=== PATIENT | male | born 1950 | race Caucasian/White ===

== ENCOUNTER → 2017-09-27 | Emergency (ER) | payer MEDICARE, MEDICAID ==
[~2017-09-27] VITALS: Ht 165.1 cm; Wt 59.9 kg
[~2017-09-27] MED LIST: CENTRUM SILVER1 EACH PO; Carafate1 GM PO; DIOVAN40 MG PO; LANSOPRAZOLE30 MG PO; NORCO 5-325 TA1 EACH PO; PERCOCET 325 MG1 TA7 PO; ST. JOHN'S WOR300 MG PO; VENTOLIN 02.5 MG/3 M INH
[2017-09-27 13:23] LABS: HEMATOCRIT 37.2 % (42.0-52.0); HEMOGLOBIN 12.9 g/dl (14.0-18.0); MEAN CELL VOLUME 90.7 fl (80.0-94.0); MEAN CORPUSCULAR HGB 31.5 pg (27.0-31.0); MEAN CORPUSCULAR HGB CONC 34.7 g/dl (33.0-37.0); MEAN PLATELET VOLUME 9.2 fl (9.6-12.3); PLATELET COUNT AUTOMATED 335 10*3/uL (130-400); RED CELL DISTRI WIDTH 13.2 % (0-14.5); WHITE BLOOD COUNT 27.8 10*3/uL (4.8-10.8)
[2017-09-27 13:37] LABS: ALKALINE PHOSPHATASE 78 U/L (45-117); BUN 20 mg/dl (7-24); CHLORIDE 101 mmol/L (98-107); CREATININE 0.78 mg/dL (0.70-1.30); POTASSIUM 3.8 mmol/L (3.5-5.1); SGOT/AST 10 IU/L (3-35); SGPT/ALT 14 U/L (12-78); SODIUM 135 mmol/L (136-145); TOTAL PROTEIN 7.3 gm/dL (6.4-8.2)
[2017-09-27 13:40] LABS: PLATELET SUFFICIENCY NORMAL (NORMAL); TOTAL CELLS COUNTED 100 #CELLS
[2017-09-27 15:57] LABS: BILIRUBIN 1+ (NEGATIVE); BLOOD 3+ (NEGATIVE); CLARITY CLOUDY (CLEAR); COLOR YELLOW (YELLOW); GLUCOSE NEGATIVE (NEGATIVE); KETONE 2+ (NEGATIVE); LEUKO ESTERASE 2+ (NEGATIVE); NITRITE POSITIVE (NEGATIVE); SPECIFIC GRAVITY 1.025 (1.005-1.030)
[2017-09-27 16:24] LABS: BACTERIA 4+; EPITHELIAL CELLS 0-2; MUCOUS 1+; WBC TNTC wbc/hpf (0-5)
== END ==
LOC: ED 12:40
PROVIDERS: Nurse Practitioner Family
DX: N45.1 Epididymitis (principal); R03.0 Elevated blood-pressure reading, without diagnosis of hypertension; E87.1 Hypo-osmolality and hyponatremia; E46 Unspecified protein-calorie malnutrition; F17.200 Nicotine dependence, unspecified, uncomplicated; Z79.899 Other long term (current) drug therapy

== ENCOUNTER → 2017-10-19 | Outpatient (CLI) | payer MEDICARE ==
[2017-10-19 11:13] LABS: BASO # 0.1 10*3/uL (0.0-0.1); BASO % 0.7 % (0.0-1.0); EOS # 0.1 10*3/uL (0.0-0.4); EOS % 1.1 % (1.0-4.0); HEMATOCRIT 37.9 % (42.0-52.0); HEMOGLOBIN 13.1 g/dl (14.0-18.0); LYMPH # 2.5 10*3/uL (1.3-4.4); MEAN CELL VOLUME 90.9 fl (80.0-94.0); MEAN CORPUSCULAR HGB 31.4 pg (27.0-31.0); MEAN CORPUSCULAR HGB CONC 34.6 g/dl (33.0-37.0); MEAN PLATELET VOLUME 9.7 fl (9.6-12.3); MONO # 0.4 10*3/uL (0.1-1.0); MONO % 5.4 % (3.0-9.0); NEUT # 5.1 10*3/uL (2.3-7.9); NEUT % 62.7 % (47.0-73.0); PLATELET COUNT AUTOMATED 253 10*3/uL (130-400); RED BLOOD COUNT 4.17 10*6/uL (4.50-5.90); RED CELL DISTRI WIDTH 13.8 % (0-14.5); WHITE BLOOD COUNT 8.2 10*3/uL (4.8-10.8)
[2017-10-19 11:39] LABS: ALBUMIN 3.8 gm/dl (3.1-4.5); BUN 15 mg/dl (7-24); CHLORIDE 102 mmol/L (98-107); CREATININE 0.91 mg/dL (0.70-1.30); SGOT/AST 17 IU/L (3-35); SGPT/ALT 27 U/L (12-78); SODIUM 135 mmol/L (136-145); TOTAL PROTEIN 7.1 gm/dL (6.4-8.2)
[2017-10-19 11:42] LABS: ALKALINE PHOSPHATASE 66 U/L (45-117)
== END | disposition home or self-care (01) ==
LOC: US 10:00 → LAB 10:02
PROVIDERS: Urology
DX: Z12.5 Encounter for screening for malignant neoplasm of prostate (principal); N50.89 Other specified disorders of the male genital organs; N40.1 Benign prostatic hyperplasia with lower urinary tract symptoms; I10 Essential (primary) hypertension

== ENCOUNTER 2018-06-02 15:53 | Emergency (ER) | payer MEDICARE ==
[~2018-06-02] VITALS: Wt 57.2 kg
--- NOTE | ~2018-06-02 | EKG ---
[place], [place] ELECTROCARDIOGRAM REPORT NAME: WOLFGANG HARRIS UNIT #: [id number] ROOM: DOCTOR: LENIN DRAFT REPORT BIRTHDATE: [birth year] [facility] Test Date: 2018-06-02 Test Time: 16:20:06 Pat Name: WOLFGANG HARRIS Department: Room: Gender: M Supervisor Mails: JOEL : 1950 Requested By: LILLIE MORATAYA Order Number: [id number] Reading MD: Kyaw Ortez MD Measurements Intervals [place] Rate: 84 P: 87 AR: 67 QRS: 28 QRSD: 166 T: -20 QT: 433 QTc: 512 Interpretive Statements Sinus rhythm Short AR interval Nonspecific intraventricular conduction delay Inferior infarct, age indeterminate Baseline wander in lead(s) V4 Electronically Signed On 06-03-2018 10:46:54 PDT by Kyaw Ortez MD CM:EKGRPT:ELECTROCARDIOGRAM REPORT [id number] LILLIE DEVRIES DRAFT REPORT LILLIE MORATAYA DO
[2018-06-02 16:35] LABS: BASO # 0.1 10*3/uL (0.0-0.1); BASO % 0.6 % (0.0-1.0); EOS # 0.1 10*3/uL (0.0-0.4); EOS % 0.9 % (1.0-4.0); HEMATOCRIT 39.8 % (42.0-52.0); HEMOGLOBIN 13.9 g/dl (14.0-18.0); LYMPH # 2.5 10*3/uL (1.3-4.4); LYMPH % 22.3 % (27.0-41.0); MEAN CORPUSCULAR HGB 31.4 pg (27.0-31.0); MEAN CORPUSCULAR HGB CONC 34.9 g/dl (33.0-37.0); MEAN PLATELET VOLUME 9.6 fl (9.6-12.3); MONO # 0.8 10*3/uL (0.1-1.0); MONO % 7.4 % (3.0-9.0); NEUT # 7.7 10*3/uL (2.3-7.9); NEUT % 68.5 % (47.0-73.0); PLATELET COUNT AUTOMATED 304 10*3/uL (130-400); RED BLOOD COUNT 4.42 10*6/uL (4.50-5.90); RED CELL DISTRI WIDTH 13.2 % (0-14.5); WHITE BLOOD COUNT 11.3 10*3/uL (4.8-10.8)
[2018-06-02 16:46] LABS: ACT PARTIAL THROMBO TIME 25.6 SECONDS (20.8-31.5); INTERNATIONAL NORM RATIO 0.9 (2.0-3.5)
[2018-06-02 16:51] LABS: ALBUMIN 3.9 gm/dl (3.1-4.5); ALKALINE PHOSPHATASE 64 U/L (45-117); BUN 18 mg/dl (7-24); CHLORIDE 105 mmol/L (98-107); CREATININE 1.15 mg/dL (0.70-1.30); ETHYL ALCOHOL < 3.0 mg/dl (<3); LIPASE 79 U/L (73-393); POTASSIUM 4.1 mmol/L (3.5-5.1); SGOT/AST 26 IU/L (3-35); SGPT/ALT 28 U/L (12-78); SODIUM 136 mmol/L (136-145); TOTAL PROTEIN 7.3 gm/dL (6.4-8.2); TROPONIN I < 0.015 ng/ml (<0.045)
== END 2018-06-02 19:39 | disposition short-term general hospital (02) ==
LOC: ED 15:53
PROVIDERS: Emergency Medicine
DX: S81.811A Laceration without foreign body, right lower leg, initial encounter (principal); S20.419A Abrasion of unspecified back wall of thorax, initial encounter; S09.90XA Unspecified injury of head, initial encounter; R41.0 Disorientation, unspecified; Z79.899 Other long term (current) drug therapy; W13.2XXA Fall from, out of or through roof, initial encounter; Y93.89 Activity, other specified; Y92.89 Other specified places as the place of occurrence of the external cause; Y99.8 Other external cause status

== ENCOUNTER → 2023-10-14 | Outpatient (CLI) | payer OTHER, MEDICAID ==
[~2023-10-14] MED LIST changes: +DOXYCYCLINE100 M3 PO; +HYDR12.5C PO; +TRAMADOL HCL50 MG PO
== END | disposition home or self-care (01) ==
LOC: RAD 11:54
PROVIDERS: ATTEND Internal Medicine Cardiovascular Disease
DX: J43.9 Emphysema, unspecified (principal); I20.89 Other forms of angina pectoris